=== PATIENT | female | born 1970 | race Caucasian/White ===

== ENCOUNTER → 2020-12-01 08:35 | Outpatient (CLI) | payer OTHER, SELFPAY ==
[2020-12-01 09:01] LABS: Bacteria Urine None Seen; RBC Urine None Seen (0-5/HPF); WBC Urine None Seen (0-5/HPF)
--- NOTE | 2020-12-01 09:23 | DI.RAD.S_ITS ---
PROCEDURE: XR ANKLE RT MIN 3V INDICATIONS: right leg and ankle pain TECHNIQUE: 3 views of the ankle were acquired. COMPARISON: [facility], CR, XR TIBIA FIBULA RT 2V, 12/01/2020, 9:21. FINDINGS: Bones: No fractures or dislocations. Ankle mortise is normally aligned. No suspicious bony lesions. Soft tissues: No tibiotalar joint effusion. Achilles tendon appears normal. IMPRESSION: No acute osseous abnormality. Dictated by: Justice Souza M.D. on 12/01/2020 at 11:49 Approved by: Justice Souza M.D. on 12/01/2020 at 11:50
--- NOTE | 2020-12-01 09:23 | DI.RAD.S_ITS ---
PROCEDURE: XR TIBIA FUBULA RT 2V INDICATIONS: right leg and ankle pain TECHNIQUE: 2 views of the tibia and fibula were acquired. COMPARISON: [facility], CR, XR ANKLE RT MIN 3V, 12/01/2020, 9:21. FINDINGS: Bones: No fractures or dislocations. No periosteal reaction. No suspicious bony lesions. Soft tissues: No suspicious soft tissue calcifications or masses. No radiopaque foreign body. IMPRESSION: No acute osseous abnormality. Dictated by: Justice Souza M.D. on 12/01/2020 at 11:49 Approved by: Justice Souza M.D. on 12/01/2020 at 11:49
[2020-12-01 09:37] LABS: Add Manual Diff / Slide Review NO; Basophils Absolute Auto 100 /uL (0-100); Basophils Percent Auto 1.9 % (0-2); Eosinophils Absolute Auto 300 /uL (0-450); Hematocrit 41.7 % (36-46); Lymphocytes Absolute Auto 2100 /uL (1100-4500); Lymphocytes Percent Auto 46.2 % (25-40); Mean Corpuscular HGB Conc 33.5 % (30-36); Mean Corpuscular Hemoglobin 32.3 PG (26-34); Mean Corpuscular Volume 96.5 fL (80-100); Monocytes Absolute Auto 300 /uL (0-900); Monocytes Percent Auto 6.2 % (3-14); Neutrophils Absolute Auto 1700 /uL (1500-7000); Neutrophils Percent Auto 38.7 % (50-75); Platelet Count 191 X10^3/uL (150-400); Red Blood Cell Count 4.32 X10^6/uL (4.0-5.2); White Blood Cell Count 4.4 X10^3/uL (4.5-11.0)
[2020-12-01 09:38] LABS: Appearance Urine UA CLEAR; Bilirubin Urine UA NEGATIVE (NEGATIVE); Color Urine UA YELLOW; Glucose Urine UA NEGATIVE (Negative); Ketones Urine UA NEGATIVE (NEGATIVE); Leukocyte Esterase Urine UA NEGATIVE (NEGATIVE); Nitrite Urine UA NEGATIVE (Negative); Occult Blood Urine UA TRACE-INTACT (Negative); Protein Urine UA NEGATIVE (Negative); Specific Gravity Urine UA 1.025 (1.000-1.035); Urobilinogen Urine UA 0.2 E.U./dL (0.2)
[2020-12-01 09:48] LABS: Hemoglobin A1C% w Est Avg Glu 5.4 % (4.0-6.0)
[2020-12-01 09:55] LABS: Alanine Aminotransferase 15 IU/L (<35); Albumin 3.9 g/dL (3.5-5.0); Albumin Globulin Ratio 1.6 (1.0-2.8); Alkaline Phosphatase 61 U/L (38-126); Aspartate Aminotransferase 25 IU/L (14-36); BUN Creatinine Ratio 19.7 (6-22); Bilirubin Total 0.2 mg/dL (0.2-1.3); Blood Urea Nitrogen 12 mg/dL (7-17); Calcium 9.3 mg/dL (8.4-10.2); Carbon Dioxide 26 mmol/L (22-32); Chloride 107 mmol/L (98-107); Cholesterol 232 mg/dL (140-199); Estimated Glomerular Filt Rate > 60.0 mL/min (>60); Globulin 2.5 g/dL (1.7-4.1); Glucose 108 mg/dL (70-100); HDL Cholesterol 58 mg/dL (40-60); HEMOLYSIS < 15 (0-50); LDL Cholesterol Calculated 151 mg/dL (<100); Potassium 4.6 mmol/L (3.4-5.1); Sodium 139 mmol/L (137-145); Total Protein 6.4 g/dL (6.3-8.2); Triglycerides 115 mg/dL (35-150)
[2020-12-01 09:57] LABS: Culture Indicated Urine Cult Not Indicated; Urine Comments Microscopic Normal; pH Urine UA 6.5 (4.5-8.0)
[2020-12-01 10:20] LABS: TSH w/ Reflex to FT4 1.84 uIU/mL (0.47-4.68)
== END ==
PROVIDERS: PCP Family Medicine; Referring Provider Family Medicine; Visit Provider Family Medicine
DX: E78.5 Hyperlipidemia, unspecified (principal); Z13.0 Encounter for screening for diseases of the blood and blood-forming organs and certain disorders involving the immune mechanism; R25.2 Cramp and spasm; N39.3 Stress incontinence (female) (male); R39.15 Urgency of urination; M25.571 Pain in right ankle and joints of right foot; M79.604 Pain in right leg
CPT/HCPCS: 36415; 73590; 73610; 80053; 80061; 81001; 83036; 83735; 84443; 85025

== ENCOUNTER → 2021-06-07 15:42 | Outpatient (CLI) | payer OTHER, SELFPAY ==
[2021-06-07 16:06] LABS: Add Manual Diff / Slide Review NO; Basophils Absolute Auto 100 /uL (0-100); Basophils Percent Auto 2.1 % (0-2); Eosinophils Absolute Auto 300 /uL (0-450); Eosinophils Percent Auto 5.9 % (2-4); Hematocrit 40.1 % (36-46); Hemoglobin 13.7 g/dL (12.0-16.0); Lymphocytes Absolute Auto 2500 /uL (1100-4500); Lymphocytes Percent Auto 45.5 % (25-40); Mean Corpuscular HGB Conc 34.1 % (30-36); Mean Corpuscular Hemoglobin 32.4 PG (26-34); Monocytes Absolute Auto 400 /uL (0-900); Monocytes Percent Auto 6.4 % (3-14); Neutrophils Absolute Auto 2200 /uL (1500-7000); Neutrophils Percent Auto 40.1 % (50-75); Platelet Count 207 X10^3/uL (150-400); Red Blood Cell Count 4.21 X10^6/uL (4.0-5.2); Red Cell Distribution Width 12.3 % (11.6-14.8); White Blood Cell Count 5.6 X10^3/uL (4.5-11.0)
[2021-06-07 16:12] LABS: Cholesterol 228 mg/dL (140-199); HDL Cholesterol 61 mg/dL (40-60); LDL Cholesterol Calculated 129 mg/dL (<100); Triglycerides 192 mg/dL (35-150)
[2021-06-07 16:44] LABS: Rubella Antibody IgG 31.9 IU/mL (>15)
[2021-06-08 08:36] LABS: Rubeola Measles IgG > 300.0 AU/mL (Immune >16.4)
[2021-06-08 11:36] LABS: Mumps Virus IgG Antibody 39.3 AU/mL (Immune >10.9)
== END ==
PROVIDERS: PCP Family Medicine; Referring Provider Family Medicine; Visit Provider Family Medicine
DX: D72.819 Decreased white blood cell count, unspecified (principal); E78.5 Hyperlipidemia, unspecified; Z00.00 Encounter for general adult medical examination without abnormal findings; Z92.29 Personal history of other drug therapy
CPT/HCPCS: 36415; 80061; 85025; 86735; 86762; 86765

== ENCOUNTER 2023-02-06 13:11 | Emergency (ER) | payer OTHER, SELFPAY ==
[2023-02-06 13:29] VITALS: BP 119/80; PULSE 102; RESP 18; TEMP 36.8; O2SAT 98; BMI 25.2
--- NOTE | 2023-02-06 15:19 | PC.NURSE ---
pt stated that she passed a 1 inch finish nail in her stool this morning. pt denies bleeding and pain. pt states that she is more nervous than anything and wanted to get checked out.
[2023-02-06] MEDS: TET,DIPH,PERTUSS(ACELL),VAC/PF 0.5 ML SYRINGE IM (15:39)
--- NOTE | 2023-02-06 15:40 | ED.SKABFB ---
HPI - Skin/Abscess/Foreign Bdy <Yayo Rowley PA-C - Last Filed: 02/06/23 15:51> General Chief complaint: Skin/Abscess/Foreign Body Stated complaint: Pooped out a nail Time Seen by Provider: 02/06/23 15:17 Source: patient Mode of arrival: Ambulatory Limitations: no limitations History of Present Illness HPI narrative: 52-year-old female past medical history hyperlipidemia, anxiety presents to the ED status post a foreign body in her stool. Patient states that she noted that a 1 in brass nail embedded in her stool this morning. Patient denies hematochezia, melena. Patient denies seeing any blood when wiping. Patient denies abdominal cramping, nausea, vomiting, fever, chills. Patient is unsure how the nail got in the stool. Patient does endorse eating some [employer] at the [employer] on 01/28. Patient states that she felt somewhat unwell a few minutes after eating that burger, states she felt sweaty/clammy and lightheaded, nauseous, and that it resolved spontaneously.. Patient states that she was feeling more constipated in the last week leading to the nail in the stool. Denies use of sex toys anally. Related Data Previous Rx's Medication Instructions Recorded hydroxyzine HCl 10 mg tablet 10 mg PO BID PRN anxiety #30 tabs 11/25/20 bupropion HCl 150 mg 24 hr tablet, 150 mg PO QAM #90 tabs 05/11/22 extended release (Wellbutrin XL) escitalopram oxalate 10 mg tablet See Rx Instructions .Route 06/19/22 .COMPLEX #90 tabs Allergies Allergy/AdvReac Type Severity Reaction Status Date / Time No Known Drug Allergies Allergy Verified 12/05/21 09:33 Review of Systems <Yayo Rowley PA-C - Last Filed: 02/06/23 15:51> Review of Systems ROS Unobtainable: All systems reviewed & are unremarkable except as noted in HPI and below Constitutional Constitutional: Denies chills, Denies fatigue, Denies fever(s), Denies frequent falls, Denies lethargy and Denies weakness Eyes Eyes: Denies change in vision, Denies eye discharge, Denies irritation and Denies loss of vision ENT Ears, Nose, Mouth, and Throat: Denies change in voice, Denies dizziness, Denies neck pain, Denies sore throat and Denies throat swelling Cardiovascular Cardiovascular: Denies chest pain, Denies irregular heart rhythm, Denies lightheadedness, Denies palpitations, Denies dyspnea, Denies dyspnea on exertion and Denies orthopnea Respiratory Respiratory: Denies cough, Denies dyspnea, Denies dyspnea on exertion and Denies wheezing Gastrointestinal Gastrointestinal: Reports as per HPI, Denies abdominal pain, Denies change in bowel habits, Denies diarrhea, Denies nausea and Denies vomiting Genitourinary Genitourinary: Denies hematuria, Denies flank pain, Denies urinary incontinence and Denies urinary urgency Musculoskeletal Musculoskeletal: Denies back pain, Denies muscle weakness, Denies neck pain, Denies numbness and Denies tingling Integumentary/Breasts Skin/Breast: Denies pruritus, Denies erythema, Denies rash and Denies wounds Neurologic Neurologic: Denies behavioral changes, Denies confusion, Denies dizziness, Denies frequent falls, Denies loss of vision, Denies numbness, Denies tingling and Denies weakness Psychiatric Psychiatric: Denies anxiety, Denies behavioral changes, Denies confusion, Denies depression, Denies homicidal ideation and Denies suicidal ideation Endocrine Endocrine: Denies fatigue, Denies flushing and Denies palpitations Hematologic/Lymphatic Hematologic/Lymphatic: Denies easy bruising Allergic/Immunologic Allergic/Immunologic: Denies urticaria, Denies throat swelling and Denies wheezing Patient History <Yayo Rowley PA-C - Last Filed: 02/06/23 15:51> Medical History Abnormal Pap smear of cervix (~1998) Ankle pain (~2017) Chicken pox (~1987) Early menopause (~2006) Gout (~2006) Human papilloma virus Hyperlipidemia Infertility Mixed anxiety and depressive disorder Rosacea (~1989) Spasm Surgical History Anesthesia H/O LEEP History of section Family History Father Hypertension Grandfather History of heart disease Grandmother History of heart disease Grandfather History of heart disease Grandmother Stroke Social History Smoking Status: Never smoker Smoking Status: Never smoker alcohol intake frequency: a few times a month Substance Use Type: does not use Exam <Yayo Rowley PA-C - Last Filed: 02/06/23 15:51> Narrative Exam Narrative: Const General:?cooperative, healthy appearing and comfortable HENAR Head:?normal to inspection Ears:?hearing grossly normal bilaterally Nose:?external nose normal Face and sinus:?normal facial exam and sinuses nontender Mouth:?oral mucosae normal Throat:?posterior oropharynx normal Eyes General:?appearance normal, both eyes and all related structures Neck Neck:?normal visual inspection and no lymphadenopathy noted Resp Effort & Inspection:?normal respiratory effort Auscultation:?clear to auscultation bilaterally Cardio Rate:?regular rate Rhythm:?regular rhythm GI Abdomen is soft, nondistended, nontender to palpation. There is no CVA tenderness. Neuro General:?patient alert, patient awake and patient oriented x3 Initial Vital Signs Initial Vital Signs: Vital Signs Temperature 98.2 F 02/06/23 13:29 Pulse Rate 102 H 02/06/23 13:29 Respiratory Rate 18 02/06/23 13:29 Blood Pressure 119/80 02/06/23 13:29 Pulse Oximetry 98 02/06/23 13:29 Oxygen Delivery Method Room Air 02/06/23 13:29 <Gisell Ventura DO - Last Filed: 02/08/23 08:41> Initial Vital Signs Initial Vital Signs: Vital Signs Temperature 98.2 F 02/06/23 13:29 Pulse Rate 102 H 02/06/23 13:29 Respiratory Rate 18 02/06/23 13:29 Blood Pressure 119/80 02/06/23 13:29 Pulse Oximetry 98 02/06/23 13:29 Oxygen Delivery Method Room Air 02/06/23 13:29 Course <Yayo Rowley PA-C - Last Filed: 02/06/23 15:51> Orders Ordered: Discontinued Medications Diphtheria/Tetanus/Acell Pertussis (Tet,Diph,Pertuss(Acell),Vac/Pf 0.5 Ml Syringe) 0.5 ml IM .ONCE ONE Stop: 02/06/23 15:33 Last Admin: 02/06/23 15:39 Dose: 0.5 ml Documented By: MPO Vital Signs Vital signs: Vital Signs - 8 hr 02/06/23 13:29 Temperature 98.2 F Pulse Rate 102 H Respiratory Rate 18 Blood Pressure 119/80 Pulse Oximetry 98 Oxygen Delivery Method Room Air <Gisell Ventura DO - Last Filed: 02/08/23 08:41> Orders Ordered: Discontinued Medications Diphtheria/Tetanus/Acell Pertussis (Tet,Diph,Pertuss(Acell),Vac/Pf 0.5 Ml Syringe) 0.5 ml IM .ONCE ONE Stop: 02/06/23 15:33 Last Admin: 02/06/23 15:39 Dose: 0.5 ml Documented By: MPO Vital Signs Vital signs: Vital Signs - 8 hr 02/06/23 13:29 Temperature 98.2 F Pulse Rate 102 H Respiratory Rate 18 Blood Pressure 119/80 Pulse Oximetry 98 Oxygen Delivery Method Room Air MDM - Skin/Abscess/Foreign Bdy <Yayo Rowley PA-C - Last Filed: 02/06/23 15:51> MDM Narrative Medical decision making narrative: 52-year-old female past medical history hyperlipidemia, anxiety presents to the ED status post a foreign body in her stool. Physical exam is reassuring for a benign abdomen. History is also reassuring with no abdominal cramping, bleeding. Patient denies anal foreign body insertion, so unlikely retained foreign bodies beside the nail. Discussed monitoring symptoms with patient. She agrees to return to the ED if she experiences any significant GI bleed, abdominal cramping, nausea, vomiting, fever, chills. Medical records reviewed: Yes Discharge Plan Departure Patient Disposition: Home Clinical Impression: Foreign body alimentary tract Instructions: DI for Foreign Body, Swallowed-Adult Activity Restrictions/Additional Instructions: You were evaluated in the ED today for a nail that you passed in the stool. It is reassuring both from the history and the physical exam that you were not having any abdominal cramping, bleeding. Please continue to monitor your symptoms and return to the ED if you have worsening symptoms including abdominal cramping, bleeding. Prescriptions: No Action escitalopram oxalate 10 mg tablet See Rx Instructions .ROUTE .COMPLEX Qty: 90 3RF Dose Instruction: TAKE 1 TABLET BY MOUTH DAILY Rx Instructions: TAKE 1 TABLET BY MOUTH DAILY hydroxyzine HCl 10 mg tablet 10 mg PO BID PRN (Reason: anxiety) Qty: 30 0RF Rx Instructions: use 1-2 tabs as needed for anxiety bupropion HCl [Wellbutrin XL] 150 mg tablet extended release 24 hr 150 mg PO QAM Qty: 90 3RF Referrals: Liam Taylor MD [Primary Care Provider] - Stand Alone Forms: Patient Portal/API <Gisell Ventura DO - Last Filed: 02/08/23 08:41> Cosign ED Attending Arceliaature Attestation: I was immediately available in the department for consultation. Documentation has been reviewed.
== END 2023-02-06 15:46 | disposition home or self-care (01) ==
PROVIDERS: Emergency Provider Student in an Organized Health Care Education/Training Program; PCP Family Medicine
DX: T18.9XXA Foreign body of alimentary tract, part unspecified, initial encounter (principal); Z23 Encounter for immunization
CPT/HCPCS: 90471; 99283; 90715

== ENCOUNTER → 2023-09-26 07:36 | Outpatient (CLI) | payer OTHER, SELFPAY ==
--- NOTE | 2023-09-26 07:38 | DI.MG.S_ITS ---
BILATERAL DIGITAL SCREENING MAMMOGRAM 3D/2D WITH CAD: 09/26/2023 CLINICAL: Routine screening. Baseline exam. No prior exams were available for comparison. There are scattered areas of fibroglandular density in both breasts (category b / 25%-50% glandular tissue). Current study was also evaluated with a Computer Aided Detection (CAD) system. There are benign calcifications in both breasts. No significant masses, calcifications, or other findings are seen in either breast. IMPRESSION: BENIGN There is no mammographic evidence of malignancy. A 1 year screening mammogram is recommended. Based on the Tyrer Cuzick model (a risk assessment model) the patient's lifetime risk is 8.3% and her 10 year risk is 2.1%. According to the ACR, ACS, and NCCN guidelines, an annual breast MRI exam along with mammogram is recommended if the patient's lifetime risk is 20% or greater. This exam was interpreted at Station ID: [id number]. NOTE: For mammograms, a report in lay terms will be sent to the patient. Approximately 15% of breast malignancies will not be visualized mammographically. In the management of a palpable breast mass, a negative mammogram must not discourage biopsy of a clinically suspicious lesion. Electronically Signed By: Justice milan/maria de jesus:09/26/2023 09:10:54 letter sent: Normal Exam ACR BI-RADS Category 2: Benign Finding(s) [id number]
[2023-09-26 08:39] LABS: Add Manual Diff / Slide Review NO; Basophils Absolute Auto 100 /uL (0-100); Basophils Percent Auto 1.8 % (0-2); Eosinophils Absolute Auto 400 /uL (0-450); Eosinophils Percent Auto 7.6 % (2-4); Hematocrit 39.8 % (36-46); Hemoglobin 13.7 g/dL (12.0-16.0); Lymphocytes Absolute Auto 2300 /uL (1100-4500); Lymphocytes Percent Auto 46.8 % (25-40); Mean Corpuscular HGB Conc 34.3 % (30-36); Mean Corpuscular Hemoglobin 32.2 PG (26-34); Mean Corpuscular Volume 93.8 fL (80-100); Monocytes Absolute Auto 300 /uL (0-900); Monocytes Percent Auto 5.7 % (3-14); Neutrophils Absolute Auto 1900 /uL (1500-7000); Neutrophils Percent Auto 38.1 % (50-75); Platelet Count 196 X10^3/uL (150-400); Red Blood Cell Count 4.24 X10^6/uL (4.0-5.2); Red Cell Distribution Width 12.4 % (11.6-14.8); White Blood Cell Count 4.9 X10^3/uL (4.5-11.0)
[2023-09-26 08:55] LABS: Hemoglobin A1C% w Est Avg Glu 5.7 % (4.0-6.0)
[2023-09-26 09:38] LABS: Alanine Aminotransferase 14 IU/L (<35); Albumin 3.8 g/dL (3.5-5.0); Albumin Globulin Ratio 1.4 (1.0-2.8); Alkaline Phosphatase 62 U/L (38-126); Aspartate Aminotransferase 22 IU/L (14-36); BUN Creatinine Ratio 16.1 (6-22); Bilirubin Total 0.6 mg/dL (0.2-1.3); Blood Urea Nitrogen 10 mg/dL (7-17); Calcium 9.1 mg/dL (8.4-10.2); Carbon Dioxide 27 mmol/L (22-32); Chloride 109 mmol/L (98-107); Cholesterol 235 mg/dL (140-199); Estimated Glomerular Filt Rate > 60 mL/min (>60); Globulin 2.8 g/dL (1.7-4.1); Glucose 98 mg/dL (70-100); HDL Cholesterol 56 mg/dL (40-60); HEMOLYSIS < 15 (0-50); LDL Cholesterol Calculated 156 mg/dL (<100); Magnesium 2.1 mg/dL (1.6-2.3); Potassium 4.2 mmol/L (3.4-5.1); Sodium 138 mmol/L (137-145); Total Protein 6.6 g/dL (6.3-8.2); Triglycerides 117 mg/dL (35-150)
[2023-09-26 09:57] LABS: Vitamin D 25 Hydroxy (D3) 19.4 ng/mL (30.0-100.0)
[2023-09-26 10:01] LABS: Creatinine Urine Random 194.1 mg/dL
[2023-09-26 10:06] LABS: Microalbumi Creatinin Ratio Ur 9.2 ug/mg CR (<30); Microalbumin Urine Random 1.8 mg/dL (0-1.6)
[2023-09-26 10:23] LABS: Vitamin B12 289 pg/mL (239-931)
== END ==
LOC: MAMMO 07:37
PROVIDERS: PCP Family Medicine; Referring Provider Family Medicine; Visit Provider Family Medicine
DX: Z12.31 Encounter for screening mammogram for malignant neoplasm of breast (principal); R92.323 Mammographic fibroglandular density, bilateral breasts; Z00.00 Encounter for general adult medical examination without abnormal findings; F90.9 Attention-deficit hyperactivity disorder, unspecified type; E78.5 Hyperlipidemia, unspecified; D72.819 Decreased white blood cell count, unspecified
CPT/HCPCS: 36415; 77063; 77067; 80053; 80061; 82043; 82306; 82570; 82607; 83036; 83735; 85025

== ENCOUNTER → 2025-05-05 07:50 | Outpatient (CLI) | payer OTHER, SELFPAY ==
[2025-05-05 08:33] LABS: Add Manual Diff / Slide Review NO; Hematocrit 42.1 % (36-46); Hemoglobin 14.6 g/dL (12.0-16.0); Lymphocytes Absolute Auto 1700 /uL (1100-4500); Mean Corpuscular HGB Conc 34.7 % (30-36); Mean Corpuscular Hemoglobin 32.6 PG (26-34); Mean Corpuscular Volume 94.0 fL (80-100); Platelet Count 190 X10^3/uL (150-400)
[2025-05-05 09:00] LABS: Alanine Aminotransferase 17 IU/L (<35); Albumin 3.9 g/dL (3.5-5.0); Albumin Globulin Ratio 1.4 (1.0-2.8); Alkaline Phosphatase 63 U/L (38-126); Blood Urea Nitrogen 10 mg/dL (7-17); Calcium 8.7 mg/dL (8.4-10.2); Carbon Dioxide 28 mmol/L (22-32); Chloride 106 mmol/L (98-107); Cholesterol 243 mg/dL (140-199); Estimated Glomerular Filt Rate > 60 mL/min (>60); Globulin 2.7 g/dL (1.7-4.1); Glucose 108 mg/dL (70-99); HDL Cholesterol 64 mg/dL (40-60); HEMOLYSIS < 15 (0-50); Potassium 4.5 mmol/L (3.4-5.1); Sodium 139 mmol/L (137-145); Total Protein 6.6 g/dL (6.3-8.2); Triglycerides 118 mg/dL (35-150); Uric Acid 3.7 mg/dL (2.5-6.2)
[2025-05-05 09:31] LABS: TSH w/ Reflex to FT4 2.66 uIU/mL (0.47-4.68)
[2025-05-05 10:33] LABS: Microalbumi Creatinin Ratio Ur 6.0 ug/mg CR (<30)
== END ==
PROVIDERS: PCP Family Medicine; Referring Provider Family Medicine; Visit Provider Family Medicine
DX: F90.9 Attention-deficit hyperactivity disorder, unspecified type (principal); F41.8 Other specified anxiety disorders; G43.909 Migraine, unspecified, not intractable, without status migrainosus; E78.5 Hyperlipidemia, unspecified; Z00.00 Encounter for general adult medical examination without abnormal findings; D72.819 Decreased white blood cell count, unspecified; M10.9 Gout, unspecified
CPT/HCPCS: 36415; 80053; 80061; 82043; 82172; 82570; 83695; 84443; 84550; 85025